=== PATIENT | female | born 1970 | race Caucasian/White ===

== ENCOUNTER → 2021-08-08 14:00 | Outpatient (BNVA) | payer OTHER, SELFPAY | PROVIDERS: Visit Provider Nurse Practitioner Family | DX: R11.10 Vomiting, unspecified (principal); R19.7 Diarrhea, unspecified; R50.9 Fever, unspecified; R52 Pain, unspecified | CPT/HCPCS: 80053; 81000; 85025; 87086; 87400 ==

== ENCOUNTER → 2022-06-08 08:00 | Outpatient (BNVA) | payer OTHER, SELFPAY | PROVIDERS: Referring Provider Nurse Practitioner Family; Visit Provider Student in an Organized Health Care Education/Training Program | DX: M67.432 Ganglion, left wrist (principal) | CPT/HCPCS: 73110 ==

== ENCOUNTER 2022-06-08 09:04 | Outpatient (CLI) | payer OTHER, SELFPAY | END 2022-06-08 09:05 | disposition home or self-care (01) | LOC: SPT 09:08 | PROVIDERS: Visit Provider Student in an Organized Health Care Education/Training Program | DX: Z46.89 Encounter for fitting and adjustment of other specified devices (principal); M67.432 Ganglion, left wrist; M25.532 Pain in left wrist | CPT/HCPCS: 97760; L3908 ==

== ENCOUNTER → 2022-06-29 10:07 | Outpatient (BNVA) | payer OTHER, SELFPAY | PROVIDERS: Visit Provider Student in an Organized Health Care Education/Training Program | DX: M67.432 Ganglion, left wrist (principal) | CPT/HCPCS: 73110 ==

== ENCOUNTER 2022-07-10 11:47 | Outpatient (CLI) | payer OTHER, SELFPAY ==
--- NOTE | 2022-07-10 11:45 | MR_ITS ---
WS: [id number] INDICATION: Mass on LEFT wrist volar side x2 months TECHNIQUE: MRI of the LEFT wrist without gadolinium enhancement. Coronal T1 PD and STIR imaging. Sagi ttal T1 axial T1 and axial T2 imaging with fat saturation technique. FINDINGS: Moderate narrowing of the radiocarpal joint. Subchondral cystic change involving the carpal bones. Scaphoid and lunate are otherwise normal. Normal scapholunate interval. Palpable marker at the base of the thumb on the volar aspect of the wrist. Small T2 hyperintense flui d collection in this area compatible with ganglion cyst. This is deep to the palpable marker measures approximately 13.9 x 5.9mm. Adjacent underlying flexor carpi radialis Fluid extends deep to the abdu ctor pollicis longus along the radial artery and vein. Normal bone marrow signal in the visualized metacarpals. TFCC appears intact. No other suspicious fin dings. MR/MR wrist LT wo con* [id number] IMPRESSION: 1. Suspected ganglion cyst deep to the palpable marker measuring 13.9 x 5.9 mm 2. Adjacent flexor carpi radialis. Fluid extends deep to the abductor pollicis longus adjacent to the radial artery and vein.
== END 2022-07-10 11:48 | disposition home or self-care (01) ==
PROVIDERS: Visit Provider Student in an Organized Health Care Education/Training Program
DX: M25.532 Pain in left wrist (principal); R22.32 Localized swelling, mass and lump, left upper limb
CPT/HCPCS: 73221

== ENCOUNTER 2023-02-14 11:52 | Outpatient (CLI) | payer OTHER, SELFPAY ==
--- NOTE | 2023-02-14 | ECG_ITS ---
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 Interpretive Statements NAME OF STUDY: TREADMILL STRESS ECHOCARDIOGRAM INDICATION: Atypical Chest Pain, PROCEDURE: At the baseline, the patient's blood pressure was 122/68 with a heart rate of 93. The baseline electrocardiogram showed normal sinus rhythm with normal ST-Ts. Poor R wave progression. The patient exercised for 4 minutes and 9 seconds on a standard Álvaro protocol. Patient attained a maximum heart rate of 142 beats per minute(85% of the maximum predicted heart rate) with a blood pressure at the peak exercise of 152/56 mm Hg. The EKG at the peak exercise revealed no significant changes. Patient did not have any chest pain or any significant cardiac arrhythmia with the exercise During the recovery phase, there were no new changes. Blood pressure at the end of the recovery phase was 113/61 mm Hg with a heart rate of 91 per minute. Echocardiographic pictures were taken at the baseline, immediately following the peak exercise and during the recovery phase. CONCLUSION: 1. Normal EKG response to treadmill exercise 2. No exercise-induced chest pain or cardiac arrhythmia 3. Impaired exercise tolerance, attained a maximum of 7.0 METs 4. Please see separate report for the echocardiographic response to exercise. Electronically Signed On 02-17-2023 15:30:38 CDT by Omayra Hui M.D. [id number]
[2023-02-14 12:40] VITALS: BMI 26.0
--- NOTE | 2023-02-14 12:41 | USCV_ITS ---
Stress Echo Lou Patel Age: 52 Gender: F : 1970 Exam Date: 02/14/2023 12:57 Ordering Phys: Omayra Hui MD ([email or web address]) Technologist: JASON Exam Location: [facility] [place] Indication: atyplical chest pain Rhythm: Sinus Patient History: Chest pain Cardiac Medications: Medications in past 24 hours: Contrast: Stress Results Protocol: Álvaro Total dose(mL): Exercise Duration (min:sec): 4:00 METS: 7 Resting HR: 94 Resting BP: 122 / 68 Peak HR: 142 Peak BP: 185 / 68 Max Predicted HR: 166 86 % Max Predicted HR Target HR: 141 Double Product: 80723 Stress Summary: The patient's target heart rate was achieved BP Response: Normal Reason for Termination: Excessive shortness of breath, , Reached target heart rate or work-load Cardiac Symptoms: Dyspnea ECG Analysis Resting ECG: Please see separate report on the EKG response Stress ECG: Please see separate report on the EKG response Arrhythmia: Please see separate report on the EKG response MEASUREMENTS (Male/Female) Normal Values 2D ECHO LV Ejection Fraction MOD 2C 70.9 % LV Ejection Fraction 2C AL 73.4 % FINDINGS The baseline echocardiogram revealed normal LV size and ejection fraction. Segmental wall motion analysis revealed no gross wall motion normalities. No significant pericardial effusion. No intracardiac masses For the peak exercise, there was good augmentation of all the segments with no exercise-induced wall motion normalities. During the recovery phase, there were no new changes. CONCLUSIONS 1. Normal echocardiographic response to treadmill exercise. 2. Low probability for coronary ischemia, based on the above findings Dr Omayra Hui MD FACC (Electronically Signed) Final Date: 16 February 2023 14:33 S
[2023-02-14 13:15] VITALS: BP 113/61; PULSE 85
== END 2023-02-14 11:53 | disposition home or self-care (01) ==
PROVIDERS: PCP Nurse Practitioner; Visit Provider Internal Medicine Cardiovascular Disease
DX: R07.89 Other chest pain (principal)
CPT/HCPCS: 93017; 93350; 93352

== ENCOUNTER → 2024-11-03 14:32 | Outpatient (BNVA) | payer OTHER, SELFPAY | PROVIDERS: PCP Nurse Practitioner; Visit Provider Nurse Practitioner | DX: R05.1 Acute cough (principal) | CPT/HCPCS: 71046 ==

== ENCOUNTER 2024-11-10 14:28 | Emergency (ER) | payer OTHER, SELFPAY ==
[2024-11-10 14:29] VITALS: BP 141/63; PULSE 86; TEMP 36.9; O2SAT 98; BMI 27.4
--- NOTE | 2024-11-10 14:48 | XRR_ITS ---
PROCEDURE INFORMATION: Exam: XR Chest Exam date and time: 11/10/2024 3:01 PM Age: 54 years old Clinical indication: Shortness of breath; Additional info: SOB TECHNIQUE: Imaging protocol: Radiologic exam of the chest. Views: 1 view. COMPARISON: CR XR chest 2V* [id number] 11/03/2024 2:36 PM FINDINGS: Lungs: Unremarkable. No consolidation. Pleural spaces: Unremarkable. No pleural effusion. No pneumothorax. Heart/Mediastinum: Unremarkable. No cardiomegaly. Bones/joints: Unremarkable. XR/XR chest 1V portable [id number] IMPRESSION: No acute findings.
--- NOTE | 2024-11-10 14:48 | ECG_ITS ---
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 Measurements Intervals [place] Rate: 84 P: 48 [place]: 133 QRS: -1 QRSD: 73 T: 68 QT: 347 QTc: 410 Interpretive Statements SINUS RHYTHM NONSPECIFIC T-WAVE ABNORMALITY No previous ECG available for comparison Electronically Signed On 11-10-2024 20:59:40 CDT by Omayra Hui M.D. [id number] [id number]
--- NOTE | 2024-11-10 14:53 | W.ED.URI ---
HPI - URI/Sore Throat General: Chief Complaint: Upper Respiratory Infection Stated Complaint: dr limon, Flu + a few weeks ago, hurts to breathe Time Seen by Provider: 11/10/24 14:47 Source: patient Mode of arrival: ambulatory Limitations: no limitations History of Present Illness: 54-year-old female states that she had influenza 3 weeks ago states she had a coughing fit and had immediate sharp chest pains 3 weeks ago with that fit states since then she has been having sharp pains right side her chest is much worse with deep breaths and palpation. States she has had some increased exertional dyspnea as well she denies any pain or shortness of breath at rest denies any fevers Associated symptoms: Reports chest pain; Deny abdominal pain, chills, diarrhea, fever(s), headache(s), nausea or vomiting Related Data Home Medications ?Medication ?Instructions ?Recorded ?Confirmed doxycycline hyclate 100 mg tablet 100 mg PO BID 11/10/24 11/10/24 famotidine 20 mg tablet 20 mg PO DAILY 11/10/24 11/10/24 lactobacillus combination no.4 3 3,000 mmu cells PO DAILY 11/10/24 11/10/24 billion cell capsule (Probiotic) Previous Rx's ?Medication ?Instructions ?Recorded naproxen 500 mg tablet (Naprosyn) 500 mg PO BID PRN pain #20 tabs 11/10/24 Allergies Allergy/AdvReac Type Severity Reaction Status Date / Time Alpha-Gal Allergy Severe ADR-Abdominal Verified 11/10/24 14:39 (Bjdckzked-Swxan-3,3-Gala Pain coconut Allergy Severe ALGY-Difficulty Verified 11/10/24 14:39 Breathing macadamia nut oil Allergy Severe ALGY-Anaphy Verified 11/10/24 14:39 laxis amoxicillin (From Augmentin) Allergy ALGY-Anaphy Verified 11/10/24 14:39 laxis cephalexin (From Keflex) Allergy ALGY-Anaphy Verified 11/10/24 16:04 laxis clavulanic acid (From Allergy ALGY-Anaphy Verified 11/10/24 14:39 Augmentin) laxis clindamycin Allergy ALGY-Anaphy Verified 11/10/24 14:39 laxis Sulfa (Sulfonamide Allergy ALGY-Rash Verified 11/10/24 14:39 Antibiotics) Review of Systems Const: Denies: fever(s), chills, body aches or change in appetite ENMT: Denies: throat pain or dental pain Card: Reports: chest pain Resp: Reports: dyspnea GI: Denies: abdominal pain, nausea, vomiting or diarrhea Musc: Denies: neck pain or back pain Skin/Breast: Denies: rash Neuro: Denies: headache(s) PFSH ED PFSH: Medical History Gangliocytic paraganglioma of small intestine Social History Smoking and tobacco/nicotine status: never used tobacco/nicotine Alcohol intake: never Substance/Drug Use: never Physical Exam Const: COMMON NORMALS: no acute distress, patient oriented x3 and healthy appearing HENMT: COMMON NORMALS: normocephalic and atraumatic HEAD & SCALP: normocephalic and atraumatic Eye: COMMON NORMALS: conjunctivae normal CONJUNCTIVA: Yes conjunctivae normal Neck/C-Spine: COMMON NORMALS: full ROM and supple Chest: COMMONS NORMALS: normal inspection of the chest OTHER: Point tender over right lateral chest wall Resp: COMMON NORMALS: normal respiratory effort, No retractions, No use of accessory muscles and clear to auscultation bilaterally AUSCULTATION: clear to auscultation bilaterally Cardio: COMMON NORMALS: regular rate, regular rhythm and No murmurs present (Cardio) RATE: regular rate RHYTHM: regular rhythm GI: COMMON NORMALS: Normal to inspection, nondistended, normoactive bowel sounds present, Soft to palpation, non-tender and no masses PALPATION: Yes Soft to palpation Extremity: COMMON NORMALS: normal to inspection and full ROM Neuro: COMMON NORMALS: patient oriented x3, moves all extremities and no focal motor deficits Psych: COMMON NORMALS: mental status grossly normal, Normal thought process present and cooperative THOUGHT PROCESS: Normal thought process present Skin: COMMON NORMALS: no rashes or lesions noted and no wounds GENERAL SKIN EXAM: no rashes or lesions noted Course Vital Signs: Vital signs: Vital Signs Temperature 98.4 F 11/10/24 14:29 Pulse Rate 76 11/10/24 15:19 Respiratory Rate 16 11/10/24 15:19 Blood Pressure 130/65 11/10/24 15:19 Pulse Oximetry 98 11/10/24 15:19 Oxygen Delivery Me thod Room Air 11/10/24 15:19 MDM - URI/Sore Throat Medical Decision Making Patient presents here with right chest wall pain was likely muscular in nature D-dimer is negative no signs of PE x-ray EKG blood works normal she feels improved here we will place her on Naprosyn she is follow-up with PCP and return if worsening. Medical Records I reviewed the patient's medical records. Lab Data I reviewed the patient's lab results. 11/10/24 15:14 11/10/24 15:14 Radiology Impressions Chest X-Ray 11/10/24 14:48 IMPRESSION: No acute findings. Laboratory Results WBC 10.94 10^3/uL (3.29-11.43) 11/10/24 15:14 RBC 4.94 10^6/uL (3.85-5.65) 11/10/24 15:14 Hgb 12.90 g/dL (11.27-16.99) 11/10/24 15:14 Hct 40.3 % (36-47) 11/10/24 15:14 MCV 81.6 fl (85-98) L 11/10/24 15:14 MCH 26.1 pg (27-33) L 11/10/24 15:14 MCHC 32.0 g/dL (30-55) 11/10/24 15:14 RDW 13.2 % (12.1-15.1) 11/10/24 15:14 Plt Count 491 10^3/cmm (157-399) H 11/10/24 15:14 MPV 9.4 fL (7.4-10.4) 11/10/24 15:14 Neut % (Auto) 60.2 % 11/10/24 15:14 Lymph % (Auto) 32.4 % 11/10/24 15:14 [place] % (Auto) 5.4 % 11/10/24 15:14 Eos % (Auto) 1.1 % 11/10/24 15:14 Baso % (Auto) 0.5 % 11/10/24 15:14 Neut # (Auto) 6.59 10^3/uL (1.8-7.7) 11/10/24 15:14 Lymph # (Auto) 3.6 10^3/uL (0.8-4.8) 11/10/24 15:14 [place] # (Auto) 0.6 10^3/uL (0.2-0.9) 11/10/24 15:14 Eos # (Auto) 0.1 10^3/uL (0.0-0.8) 11/10/24 15:14 Baso # (Auto) 0.1 10^3/uL (0.0-0.1) 11/10/24 15:14 Nucleated RBC % (auto) 0 % 11/10/24 15:14 Nucleated RBCs # 0.0 /100WBC 11/10/24 15:14 D-Dimer <= 0.27 ug/mLFEU (0-0.59) 11/10/24 15:14 Sodium 139 mmol/L (136-145) 11/10/24 15:14 Potassium 4.6 mmol/L (3.5-5.1) 11/10/24 15:14 Chloride 106 mmol/L (98-107) 11/10/24 15:14 Carbon Dioxide 20 mmol/L (22-29) L 11/10/24 15:14 Anion Gap 17.6 (5-19) 11/10/24 15:14 BUN 13 mg/dL (6-20) 11/10/24 15:14 Creatinine 0.7 mg/dL (0.5-0.9) 11/10/24 15:14 GFR Calculation 86.6 mL/min (90-130) L 11/10/24 15:14 Glucose 90 mg/dL (65-115) 11/10/24 15:14 Calculated Osmolality 288 mOsm/kg (285-295) 11/10/24 15:14 Calcium 9.2 mg/dL (8.5-10.5) 11/10/24 15:14 Total Bilirubin 0.3 mg/dL (0.15-1.2) 11/10/24 15:14 AST 19 U/L (0-32) 11/10/24 15:14 ALT 20 U/L (0-33) 11/10/24 15:14 Alkaline Phosphatase 208 U/L (35-105) H 11/10/24 15:14 NT-Pro-B Natriuret Pep < 36 pg/mL (0-125) 11/10/24 15:14 Total Protein 8.0 g/dL (6.6-8.7) 11/10/24 15:14 Albumin 4.1 g/dL (3.5-5.2) 11/10/24 15:14 Globulin 3.9 g/dL (1.3-4.6) 11/10/24 15:14 All radiology interpretation(s) finalized by discharge EKG Data EKG 1: I personally reviewed and interpreted this EKG as follows: EKG interpretation date: 11/10/24 EKG interpretation time: 15:25 Interpretation: nsr hr [address] elevation qrs 73 qtc 387 Discharge Plan Discharge Patient Disposition: Home Clinical Impression: Influenza, Chest wall pain Condition: Stable Prescriptions: New naproxen [Naprosyn] 500 mg tablet 500 mg PO BID PRN (Reason: pain) Qty: 20 0RF No Action doxycycline hyclate 100 mg tablet 100 mg PO BID famotidine 20 mg Tablet 20 mg PO DAILY Probiotic 3 billion cell Capsule 3,000 mmu cells PO DAILY Rx Instructions: administer with a meal Discharge Orders: Discharge ED (Routine); Ordered 11/10/24 Ordered By: Ollie Vines Referrals: Shyla Gaona ETHAN[employer] QUALITY LEADER [Primary Care Provider] - 4-7 days Discharge Diet: Advance as tolerated Discharge Activity: Resume usual activity Patient Instructions: Chest Wall Pain (ED) Print Language: Portuguese Coding Level of Care Code ED 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
[2024-11-10] MEDS: ketorolac 30 mg/mL INJ 15 MG IVP (15:16)
[2024-11-10 15:19] VITALS: BP 130/65; PULSE 76; RESP 16; O2SAT 98
[2024-11-10 15:21] LABS: Basophils # 0.1 10^3/uL (0.0-0.1); Basophils % 0.5 %; Eosinophils # 0.1 10^3/uL (0.0-0.8); Eosinophils % 1.1 %; Hematocrit 40.3 % (36-47); Lymphocytes # 3.6 10^3/uL (0.8-4.8); Lymphocytes % 32.4 %; Mean Corpuscular Hemoglobin 26.1 pg (27-33); Mean Corpuscular Volume 81.6 fl (85-98); Mean Platelet Volume 9.4 fL (7.4-10.4); Monocytes # 0.6 10^3/uL (0.2-0.9); Monocytes % 5.4 %; Neutrophils # 6.59 10^3/uL (1.8-7.7); Neutrophils % 60.2 %; Nucleated Red Blood Cells % 0 %; Platelet Count 491 10^3/cmm (157-399); Red Blood Count 4.94 10^6/uL (3.85-5.65); Red Cell Distribution Width 13.2 % (12.1-15.1); White Blood Count 10.94 10^3/uL (3.29-11.43)
[2024-11-10 15:36] LABS: D Dimer <= 0.27 ug/mLFEU (0-0.59)
[2024-11-10 15:47] LABS: Alanine Aminotransferase 20 U/L (0-33); Albumin Level 4.1 g/dL (3.5-5.2); Alkaline Phosphatase 208 U/L (35-105); Blood Urea Nitrogen 13 mg/dL (6-20); Calcium 9.2 mg/dL (8.5-10.5); Carbon Dioxide 20 mmol/L (22-29); Chloride 106 mmol/L (98-107); Creatinine Clr Calc Pharmacy 84.3806; Globulin 3.9 g/dL (1.3-4.6); Glomerular Filtration Rate 86.6 mL/min (90-130); Glucose 90 mg/dL (65-115); NT Pro B Type Natriuretic Pept < 36 pg/mL (0-125); Osmolality Calculated 288 mOsm/kg (285-295); Sodium 139 mmol/L (136-145); Total Bilirubin 0.3 mg/dL (0.15-1.2)
[2024-11-10 15:52] LABS: Anion Gap 17.6 (5-19); Aspartate Amino Transferase 19 U/L (0-32); Potassium 4.6 mmol/L (3.5-5.1)
[2024-11-10] MEDS: dexamethasone 10 mg/mL INJ IVP (16:45)
[2024-11-10 16:58] VITALS: BP 118/56; PULSE 85; O2SAT 96
== END 2024-11-10 16:59 | disposition home or self-care (01) ==
PROVIDERS: Emergency Provider Emergency Medicine; PCP Nurse Practitioner
DX: J11.1 Influenza due to unidentified influenza virus with other respiratory manifestations (principal); R07.89 Other chest pain
CPT/HCPCS: 36415; 71045; 80053; 83880; 85025; 85378; 93005; 96374; 96375; 99285; J1100; J1885